=== PATIENT | female | born 1950 | race Asian ===

== ENCOUNTER → 2018-09-11 | Outpatient (CLI) | payer OTHER | LOC: BMCIMAGING 13:51 | PROVIDERS: ATTEND Physician Assistant Medical | DX: Z12.31 Encounter for screening mammogram for malignant neoplasm of breast (principal); Z13.820 Encounter for screening for osteoporosis; M85.89 Other specified disorders of bone density and structure, multiple sites; Z78.0 Asymptomatic menopausal state ==